=== PATIENT | male | born 1970 | race Caucasian/White ===

== ENCOUNTER 2018-07-16 05:32 | Emergency (ER) | payer OTHER ==
[2018-07-16] MEDS ORDERED: NS 1,000 ML IV ONE ×2 (06:00→07:34)
[2018-07-16 06:15] LABS: PLATELET COUNT 243 10^3/uL (150-400)
--- NOTE | 2018-07-16 06:16 | EDPHY ---
H & P Stated Complaint: L flank pain, urgency, retention, hx kidney stones/rhyabdo - Personal History Current Tetanus Diphtheria and Acellular Pertussis (TDAP): Yes - Medical/Surgical History Hx Asthma: Yes Hx Chronic Respiratory Disease: No Hx Diabetes: No Hx Cardiac Disease: No Hx Renal Disease: No Hx Cirrhosis: No Hx Alcoholism: No Hx HIV/AIDS: No Hx Splenectomy or Spleen Trauma: No Other PMH: Obesity, MADELYN, Rhahydomylosis - Social History Smoking Status: Never smoked Time Seen by Provider: 07/16/18 05:59 HPI/ROS: Chief Complaint: Flank pain HPI: 47-year-old male presenting with left flank pain. Patient states that 2 weeks ago he was admitted to [facility] with left flank pain. At that time he was diagnosed with a kidney stone. Had also been exercising heavily and was noted to have acute kidney injury and was in rhabdomyolysis. Patient was admitted to [facility] overnight given IV hydration improved by morning. He did not follow up with urologist as he has not had any pain. Pain returns several days ago spinning worsening. Pain is always in the left hand side. He radiating down to his left abdomen. He does have a history of gout but has not been taking any naproxen secondary to the kidney injury during his prior admission. Patient states that he has not been engaging as such triggers exercise since then. No fevers or chills. No groin pain. No urinary urgency or frequency. Is not noted is urine to be particularly dark. No nausea or vomiting. ROS: 10 systems were reviewed and were negative except those elements noted in the HPI. PMH: Gout, kidney stones, Re myolysis with acute kidney injury Social History: No smoking, no alcohol, no recreational drug use Family History: non-contributory Physical Exam: Gen: Awake, Alert, No Distress HEENT: Nose: no rhinorrhea Eyes: PERRLA, EOMI Mouth: Moist mucosa Neck: Supple, no JVD Chest: nontender, lungs clear to auscultation Heart: S1, S2 normal, no murmur Abd: Soft, non-tender, no guarding Back: no CVA tenderness, no midline tenderness Ext: no edema, non-tender Skin: no rash Neuro: CN II-XII intact, Sensation grossly intact, Strength 5/5 in bilateral upper and lower extremities (Jerrell Ruiz) Constitutional: Initial Vital Signs Temperature (C) 36.7 C 07/16/18 05:35 Heart Rate 76 07/16/18 05:35 Respiratory Rate 18 07/16/18 05:35 Blood Pressure 130/92 H 07/16/18 05:35 O2 Sat (%) 95 07/16/18 05:35 O2 Delivery Mode Room Air O2 (L/minute) 2 Allergies/Adverse Reactions: Penicillins Allergy (Verified 07/16/18 06:00) Home Medications: Medication Instructions Recorded Ciprofloxacin [Cipro] 500 mg PO BID #14 tab 07/16/18 Tamsulosin HCl [Flomax] 0.4 mg PO DAILY #10 cap 07/16/18 oxyCODONE/APAP 5/325 [Percocet 1 - 2 tab PO Q6H PRN #10 tab 07/16/18 5/325] Medical Decision Making - Diagnostics Imaging Results: Impression: 1. Bilateral nonobstructive nephrolithiasis. 2. 3 mm calculus in the dependent aspect of the bladder probably representing recently passed left- sided calculus. 3. Cholelithiasis. 4. Moderate hepatic steatosis. Attention: This CT examination is specifically designed to evaluate patients who are clinically suspected of having acute obstructive uropathy. This examination does not use radiographic contrast , and as such, provides only a limited evaluation of the abdomen, pelvis and retroperitoneum. If there is further clinical suspicion for pathological conditions other than obstructive uropathy, a complete CT evaluation of the abdomen and pelvis utilizing intravenous and oral contrast should be considered. These findings were discussed by telephone with Dr. Elsy Norris at 0913hrs. Dictated By: Canelo Romero MD (Elsy Norris) ED Course/Re-evaluation: 47-year-old male presenting with left flank pain. Recent diagnosis of a kidney stone. He has gotten equivocal urinalysis today for UTI. CT scan in the past showed a left renal pole stone. Given his pain which is very convincing for a kidney stone and a possible equivocal UTI I will be repeating a CT scan of his abdomen and pelvis to evaluate for possible infected stone which will have implications for his treatment. Patient is signed out to Dr. Norris pending CT scan results. (Jerrell Ruiz) Other Provider: Assumed care of this patient at 7:00 a.m., change of shift. CT scan does demonstrate a kidney stone. Reassessed patient. Her pain is well controlled. Urinary with some white cells. Discussed pain meds, Flomax, ciprofloxacin, strain urine, follow up as directed. Patient received Toradol, Flomax in the emergency department. Discharged with Percocet and Flomax. (Elsy Norris) - Data Points Laboratory Results: Laboratory Results 07/16/18 06:10 07/16/18 06:10 Medications Given: Discontinued Medications Ciprofloxacin (Cipro) 500 mg PO EDNOW ONE PRN Reason: Protocol Stop: 07/16/18 09:13 Last Admin: 07/16/18 09:34 Dose: 500 mg Sodium Chloride (Ns) 1,000 mls @ 0 mls/hr IV EDNOW ONE; Wide Open PRN Reason: Protocol Stop: 07/16/18 06:01 Last Admin: 07/16/18 06:01 Dose: 1,000 mls Sodium Chloride (Ns) 1,000 mls @ 0 mls/hr IV ONCE ONE; Wide Open PRN Reason: Protocol Stop: 07/16/18 07:35 Last Admin: 07/16/18 07:42 Dose: 1,000 mls Ketorolac Tromethamine (Toradol) 15 mg IVP ONCE ONE Stop: 07/16/18 06:32 Last Admin: 07/16/18 06:38 Dose: 15 mg Tamsulosin HCl (Flomax) 0.4 mg PO EDNOW ONE Stop: 07/16/18 09:16 Last Admin: 07/16/18 09:34 Dose: 0.4 mg Departure - Departure Disposition: Home, Routine, Self-Care Clinical Impression: Renal colic on left side, Possible urinary tract infection Condition: Good Instructions: Kidney Stones (ED) Additional Instructions: Take oxycodone as needed for severe pain. Use Zofran as needed for nausea. Take ibuprofen 600 mg every 6-8 hours as needed for moderate pain. This will also help with inflammation. Take Flomax as directed. Take Ciprofloxacin 500 mg 2 times a day for the next 7 days. Followup with urology as directed below. Strain urine. Return to the emergency department if you have worsening pain, fevers, persistent vomiting, or other concerns. Referrals: NONE *PRIMARY CARE P,. [Primary Care Provider] - As per Instructions Andre Pang MD [Medical Doctor] - As per Instructions Prescriptions: Ciprofloxacin [Cipro] 500 mg PO BID #14 tab oxyCODONE/APAP 5/325 [Percocet 5/325] 1 - 2 tab PO Q6H PRN #10 tab PRN Reason: Pain, Severe Tamsulosin HCl [Flomax] 0.4 mg PO DAILY #10 cap
[2018-07-16] MEDS ORDERED: KETOROLAC 15 MG/1 ML SDV IVP ONE (06:31)
[2018-07-16 06:32] LABS: CREATINE KINASE 546 IU/L (0-224)
[2018-07-16] MEDS ORDERED: CIPROFLOXACIN 500 MG TAB PO ONE (09:12)
[2018-07-16] MEDS ORDERED: TAMSULOSIN HCL 0.4 MG CAP PO ONE (09:15)
[2018-07-16 09:43] VITALS: BP 129/90
== END 2018-07-16 09:43 | disposition home or self-care (01) ==
DX: N20.0 Calculus of kidney (principal); E86.9 Volume depletion, unspecified
CPT/HCPCS: 96374; J1885